=== PATIENT | female | born 1950 ===

== ENCOUNTER → 2024-07-10 | Outpatient (CLI) | payer MEDICARE, OTHER | LOC: LAB SHORT 10:10 → LAB 10:10 | DX: L08.9 Local infection of the skin and subcutaneous tissue, unspecified (principal); L23.9 Allergic contact dermatitis, unspecified cause; L57.8 Other skin changes due to chronic exposure to nonionizing radiation; Z71.89 Other specified counseling | CPT/HCPCS: 87070; 87205 ==